=== PATIENT | male | born 1960 | race Caucasian/White ===

== ENCOUNTER → 2020-06-14 | Outpatient (CLI) | payer OTHER ==
[~2020-06-14] MED LIST: CATAPRES 0.1MG0.1 MG PO; ELAVIL 50 MG TA50 MG PO; GABAPENTIN300 MG PO; LIBRIUM CAP 2525 MG PO; LOPRESSOR50 MG PO; OMEPRAZOLE40 MG PO; PAXIL20 MG PO; PRAVACHOL20 MG PO; TYLENOL 500 MG500 MG PO; VISTARIL 25 MG25 MG PO; VISTARIL25 MG PO; VIT D 3 PO; ZANTAC150 MG PO; ZESTRIL40 MG PO
[2020-06-14 14:07] LABS: HEMOGLOBIN 15.5 gm/dl (14.0-17.5); RED BLOOD COUNT 4.76 M/UL (4.20-5.50); WHITE BLOOD COUNT 8.8 K/UL (4.5-11.0)
[2020-06-14 14:59] LABS: BUN/CREATININE RATIO 14 (0-10)
[2020-06-15 11:14] LABS: HBSAG SCREEN Positive (Negative); HEP A AB, IGM Negative (Negative); HEP B CORE AB, IGM Negative (Negative); HEP C VIRUS AB <0.1 (0.0-0.9); VITAMIN D, 25-HYDROXY 84.1 ng/mL (30.0-100.0)
== END ==
LOC: LAB 12:47
PROVIDERS: Family Medicine
DX: Z12.5 Encounter for screening for malignant neoplasm of prostate (principal); M79.601 Pain in right arm; E78.5 Hyperlipidemia, unspecified; I10 Essential (primary) hypertension; E55.9 Vitamin D deficiency, unspecified; M50.30 Other cervical disc degeneration, unspecified cervical region; Z20.5 Contact with and (suspected) exposure to viral hepatitis
CPT/HCPCS: 36415; 72040; 73030; 73060; 80053; 80061; 80074; 84153; 84439; 84443; 84481; 85027

== ENCOUNTER → 2021-11-24 | Outpatient (CLI) | payer OTHER ==
[2021-11-25 11:14] LABS: HBSAG SCREEN Positive (Negative); HEP BE AG Negative (Negative)
== END ==
LOC: LAB 14:23
PROVIDERS: Internal Medicine Gastroenterology
DX: R14.0 Abdominal distension (gaseous) (principal); K21.9 Gastro-esophageal reflux disease without esophagitis
CPT/HCPCS: 36415; 87340; 87350

== ENCOUNTER → 2021-12-05 | Outpatient (CLI) | payer OTHER ==
[2021-12-06 22:07] LABS: HBV IU/ML 10 IU/mL (.)
== END ==
LOC: US 09:10
PROVIDERS: Internal Medicine Gastroenterology
DX: B18.1 Chronic viral hepatitis B without delta-agent (principal); R94.5 Abnormal results of liver function studies; R79.89 Other specified abnormal findings of blood chemistry
CPT/HCPCS: 36415; 76705; 80076; 87517

== ENCOUNTER → 2021-12-14 | Day surgery (SDC) | payer OTHER ==
[~2021-12-14] MED LIST changes: +AMITRIPTYLINE100 MG PO; +APPLE CIDER VINEGAR; +CLONIDINE HCL0.2 MG PO; +DICYCLOMINE HCL10 MG PO; +FIBER; +HYDROXYZINE HCL50 MG PO; +MILK THISTLE; +PROAIR HFA8.5 GM INH; +PROTONIX 40 MG40 M1 PO
== END | disposition home or self-care (01) ==
LOC: OR 07:29
DX: K59.00 Constipation, unspecified (principal); K31.9 Disease of stomach and duodenum, unspecified; K29.80 Duodenitis without bleeding; D12.8 Benign neoplasm of rectum; K31.7 Polyp of stomach and duodenum; K64.1 Second degree hemorrhoids; K64.4 Residual hemorrhoidal skin tags; I10 Essential (primary) hypertension; E78.00 Pure hypercholesterolemia, unspecified; B19.10 Unspecified viral hepatitis B without hepatic coma; E66.9 Obesity, unspecified; Z68.34 Body mass index [BMI] 34.0-34.9, adult; Z72.0 Tobacco use; Z86.010 Personal history of colon polyps
CPT/HCPCS: J2704; J7040